=== PATIENT | male | born 1995 | race Caucasian/White ===

== ENCOUNTER 2017-04-21 04:01 | Emergency (ER) | payer OTHER ==
--- NOTE | 2017-04-21 04:06 | EDPHY ---
H & P HPI/ROS: HPI CHIEF COMPLAINT: Syncope left forehead laceration HISTORY OF PRESENT ILLNESS: This patient very pleasant 21-year-old male, otherwise healthy denies any significant medical history presents emergency room after he had a syncopal episode. Patient reports that for the 1st time in 2 years he went hunting 8 meat. He does not usually eat meat. Patient states that he ate meat for the 1st time in 2 years. He had chili and poor, and then a squirrel. He reports that his stomach got upset he went to use the bathroom around an hour ago. And developed abdominal cramping he had a bowel movement. No vomiting. He did feel nauseous. He got lightheaded. He went to go sit down on the ground and fell off toilet striking his head against the tile. Positive LOC. He had no chest pain or shortness of breath. He has no neck pain. Does complain of a left forehead hematoma and laceration. Left frontal headache. He did have alcohol this evening. Patient reports he had 2 beers and a Juvenal and Coke. Patient does state that he had a bowel movement. And then had a syncopal episode. Past Medical History: No significant medical history Past Surgical History: No significant surgical history Social History: Alcohol this evening, denies illicit drugs or tobacco. Family History: Noncontributory ROS REVIEW OF SYSTEMS: A comprehensive 10 point review of systems is otherwise negative aside from elements mentioned in the history of present illness. Exam Constitutional appears well nontoxic, triage nursing summary reviewed, vital signs reviewed, awake/alert. Eyes normal conjunctivae and sclera, EOMI, PERRLA. HENT head/neck: Rather large left-sided forehead laceration 6 cm in length. Jagged., hematoma present. No midline cervical spine pain, no other significant head trauma. normal inspection, atraumatic, moist mucus membranes, no epistaxis, neck supple/ no meningismus, no raccoon eyes. Respiratory clear to auscultation bilaterally, normal breath sounds, no respiratory distress, no wheezing. Cardiovascular rate normal, regular rhythm, no murmur, no edema, distal pulses normal. Gastrointestinal soft, non-tender, no rebound, no guarding, normal bowel sounds, no distension, no pulsatile mass. Genitourinary no CVA tenderness. Musculoskeletal no midline vertebral tenderness, full range of motion, no calf swelling, no tenderness of extremities, no meningismus, good pulses, neurovascularly intact. Skin pink, warm, & dry, no rash, skin atraumatic. Neurologic awake, alert and oriented x 3, AAOx3, moves all 4 extremities equally, motor intact, sensory intact, CN II-XII intact, normal cerebellar, normal vision, normal speech. Psychiatric normal mood/affect. Heme/Lymph/Immune no lymphadenopathy. Differential Diagnosis: Includes but is not limited to in a particular order left forehead laceration, left forehead contusion, intracranial bleed, skull fracture, syncope, vasovagal syncope, micturition syncope. Medical Decision Making: Plan for this patient EKG to rule out cardiac arrhythmia. CT head without contrast to rule out intracranial bleed or skull fracture. And then he will need his forehead laceration repaired Re-evaluation: Laceration Repair Procedure: Verbal Consent was obtained, Under sterile conditions, The patient had lidocaine with epinephrine used approximately 5 ccs to local anesthetize the left forehead 6 cm in length jagged Laceration. The wound was copiously irrigated with sterile fluid, the wound was explored for foreign bodies there were none visualized, the wound was explored with a sterile glove to the base. There are no deep structures involved, including no arterial injury. 8 interrupted 6.0 PROLENE Sutures were placed in this patient 's laceration. He had good close approximation of the wound edges. He Tolerated this well. 0432AM: This patient resting comfortably no acute distress. Lacerations parents under sterile conditions by myself. He tolerated this well. He understands to have sutures removed in 7 days. Keep his wound, clean dry, intact. Protected. Watch for infection. He tolerated this procedure well. He understands stay well-hydrated drink lots of fluids. Return emergency room if he has another syncopal episode. EKG interpretation by me on record in [employer] system. Impression time of EKG 4:32 a.m., this is sinus rhythm rate of 62. Early [place] pulp pattern. The EKG is reading ST elevation she just pericarditis however patient has no chest pain shortness of breath. I disagree the EKG interpretation. This shows early [place] pulp pattern. Unremarkable nonischemic EKG. No signs of cardiac arrhythmia. CT scan of the head without IV contrast. The results of the study are negative for acute disease process. The study was read by Dr. Cantu I viewed the images myself on the PACS system. Source: Patient Constitutional: Initial Vital Signs Temperature (C) 36.4 C 04/21/17 04:04 Heart Rate 68 04/21/17 04:04 Respiratory Rate 14 04/21/17 04:04 Blood Pressure 120/68 04/21/17 04:04 O2 Sat (%) 98 04/21/17 04:04 O2 Delivery Mode Room Air Allergies/Adverse Reactions: No Known Allergies Allergy (Unverified 04/21/17 04:06) Departure - Departure Disposition: Home, Routine, Self-Care Clinical Impression: Laceration Syncope Qualifiers: Syncope type: unspecified Qualified Code(s): R55 - Syncope and collapse Condition: Good Instructions: Care For Your Stitches (ED), Laceration (ED) Additional Instructions: 1. Sutures need to be removed in 7 days. 2. Watch for signs of infection this redness drainage pus swelling pain. 3. Keep her wound clean, dry, intact. Referrals: NONE *PRIMARY CARE P,. [Primary Care Provider] - As per Instructions
[2017-04-21 04:08] VITALS: BP 120/68; PULSE 68; RESP 14; TEMP 97.5; O2SAT 98
--- NOTE | 2017-04-21 04:53 | CPEKG ---
Heart Rate: 62 RR Interval: 968 P-R Interval: 152 QRSD Interval: 88 QT Interval: 392 QTC Interval: 398 P Galt: 24 QRS Galt: 84 T Wave Galt: 62 EKG Severity - ABNORMAL ECG - EKG Impression: SINUS RHYTHM EKG Impression: ST ELEVATION SUGGESTS PERICARDITIS Electronically Signed By: Haris Lewis 23-Apr-2017 20:16:09
== END 2017-04-21 05:36 | disposition home or self-care (01) ==
PROC: 0HQ1XZZ Repair Face Skin, External Approach (ICD-10-PCS; principal; 2017-04-21)
DX: S01.81XA Laceration without foreign body of other part of head, initial encounter (principal); R55 Syncope and collapse; W18.11XA Fall from or off toilet without subsequent striking against object, initial encounter